=== PATIENT | female | born 1955 | race Caucasian/White ===

== ENCOUNTER 2018-02-02 21:05 | Emergency (ER) | payer OTHER, MEDICAID ==
[~2018-02-02] VITALS: Ht 154.9 cm; Wt 65.0 kg
[~2018-02-02 21:05] MED LIST: ATORVASTATIN; GABAPENTIN; HYDROXYZINE; LEVO500T2 PO; METFORMIN; MOTRIN; TRAM50TA3 PO
[2018-02-02] MEDS ORDERED: KETOROLAC 30MG/ML VIAL IV STA (23:24)
[2018-02-02] MEDS ORDERED: TETANUS, DIPHTHERIA, PERTUSSIS VAC/PF 0.5ML (>7YR OLD) IM ONE (23:30)
[2018-02-03 01:24] VITALS: BP 159/76
[2018-02-03 01:43] LABS: BASOPHILS % 0.4 % (0.0-2.0); EOSINOPHILS % 0.8 % (0.0-5.0); HEMATOCRIT. 41.1 % (36.0-48.0); HEMOGLOBIN. 13.8 g/dL (12.0-16.0); LYMPHOCYTES % 42.1 % (20.0-50.0); MEAN CORPUSCULAR HEMOGLOBIN 29.6 pg (28.0-32.0); MEAN CORPUSCULAR VOLUME 88.3 fL (81.0-99.0); MEAN PLATELET VOLUME 9.4 fl (7.4-10.4); MONOCYTES % 7.9 % (2.0-8.0); NEUTROPHILS % 48.8 % (40.0-76.0); PLATELET 240 x1000/uL (130-400); RED BLOOD CELL COUNT 4.66 mill/uL (4.2-5.4); RED CELL DISTRIBUTION WIDTH 15.2 % (11.6-14.6)
[2018-02-03 02:00] LABS: CHLORIDE 104 mEq/L (98-107)
== END 2018-02-03 02:00 | disposition home or self-care (01) ==
LOC: ER 21:05
DX: S00.31XA Abrasion of nose, initial encounter (principal); S00.211A Abrasion of right eyelid and periocular area, initial encounter; I10 Essential (primary) hypertension; E78.00 Pure hypercholesterolemia, unspecified; E11.9 Type 2 diabetes mellitus without complications; K21.9 Gastro-esophageal reflux disease without esophagitis; Z88.0 Allergy status to penicillin; Z79.899 Other long term (current) drug therapy; Z90.49 Acquired absence of other specified parts of digestive tract; W18.39XA Other fall on same level, initial encounter; Y93.89 Activity, other specified; Y92.89 Other specified places as the place of occurrence of the external cause; Y99.8 Other external cause status
CPT/HCPCS: 36415; 70450; 70486; 71045; 73030; 73070; 80053; 83690; 85025; 90471; 90715; 93005; 96374; 99285; J1885

== ENCOUNTER 2018-02-03 11:55 | Emergency (ER) | payer OTHER, MEDICAID ==
[~2018-02-03] VITALS: Ht 157.5 cm; Wt 71.5 kg
[2018-02-03] MEDS ORDERED: TRAMADOL 50MG TABLET PO ONE (12:30)
[2018-02-03 12:31] VITALS: BP 141/67
== END 2018-02-03 12:47 | disposition home or self-care (01) ==
LOC: ER 12:44
DX: S52.591A Other fractures of lower end of right radius, initial encounter for closed fracture (principal); E11.9 Type 2 diabetes mellitus without complications; E78.00 Pure hypercholesterolemia, unspecified; I10 Essential (primary) hypertension; Z98.890 Other specified postprocedural states; Z88.0 Allergy status to penicillin; Z79.899 Other long term (current) drug therapy; X58.XXXA Exposure to other specified factors, initial encounter; Y93.89 Activity, other specified; Y92.89 Other specified places as the place of occurrence of the external cause; Y99.8 Other external cause status
CPT/HCPCS: 29105; 99283

== ENCOUNTER 2018-04-13 18:07 | Emergency (ER) | payer OTHER, MEDICAID ==
[~2018-04-13] VITALS: Ht 154.9 cm; Wt 60.0 kg
[2018-04-13 19:07] VITALS: BP 143/76
== END 2018-04-13 19:06 | disposition home or self-care (01) ==
LOC: ER 18:07
DX: B37.89 Other sites of candidiasis (principal); E11.9 Type 2 diabetes mellitus without complications
CPT/HCPCS: 99283

== ENCOUNTER 2020-12-07 11:58 | Emergency (ER) | payer OTHER, MEDICAID ==
[~2020-12-07] VITALS: Ht 152.4 cm; Wt 55.0 kg
[2020-12-07] MEDS ORDERED: GABAPENTIN 300MG CAPSULE PO ONE (12:45)
[2020-12-07] MEDS ORDERED: LIDOCAINE 5% PATCH TOP SCH (12:45)
[2020-12-07] MEDS ORDERED: TRAMADOL 50MG TABLET PO ONE (12:45)
[2020-12-07] MEDS ORDERED: TRAM50TA3 MT (14:26)
[2020-12-07] MEDS ORDERED: LIDO1ADH5 TP (14:26)
[2020-12-07] MEDS ORDERED: GABA-532 MT (14:26)
[2020-12-07 14:57] VITALS: BP 176/78
== END 2020-12-07 14:59 | disposition home or self-care (01) ==
LOC: ER 12:51
DX: M54.40 Lumbago with sciatica, unspecified side (principal); E11.9 Type 2 diabetes mellitus without complications; E78.00 Pure hypercholesterolemia, unspecified; Z98.890 Other specified postprocedural states; Z79.899 Other long term (current) drug therapy; Z88.0 Allergy status to penicillin
CPT/HCPCS: 72100; 99284

== ENCOUNTER 2021-11-29 12:40 | Emergency (ER) | payer MEDICAID, OTHER ==
[~2021-11-29] VITALS: Ht 152.4 cm; Wt 66.0 kg
[~2021-11-29 12:40] MED LIST changes: +GABA-532 MT; +LIDO1ADH5 TP; +TRAM50TA3 MT
[2021-11-29] MEDS ORDERED: IBUP-2028 MT (13:43)
[2021-11-29] MEDS ORDERED: MORP15TA67 MT (13:43)
[2021-11-29] MEDS ORDERED: TOPUD PO (13:43)
[2021-11-29] MEDS ORDERED: LIDO1ADH23 TP (13:43)
[2021-11-29] MEDS ORDERED: VALA10002 MT (13:43)
[2021-11-29] MEDS ORDERED: MORPHINE SULFATE 10 MG/ML CPJ IM ONE (13:45)
[2021-11-29] MEDS ORDERED: DIPHENHYDRAMINE 50MG/ML VIAL IM ONE (13:45)
[2021-11-29] MEDS ORDERED: LIDOCAINE 5% PATCH TOP SCH (13:45)
[2021-11-29] MEDS ORDERED: KETOROLAC 60MG/2ML VIAL IM ONE (13:45)
[2021-11-29 15:22] VITALS: BP 160/73
[2021-11-29] MEDS ORDERED: VALACYCLOVIR HCL 500MG TABLET PO SCH (21:00)
== END 2021-11-29 15:24 | disposition home or self-care (01) ==
LOC: ER 12:51
DX: M79.604 Pain in right leg (principal); B02.9 Zoster without complications; E11.9 Type 2 diabetes mellitus without complications; E78.00 Pure hypercholesterolemia, unspecified; I10 Essential (primary) hypertension; Z79.899 Other long term (current) drug therapy
CPT/HCPCS: 96372; 99284; J1200; J1885; J2270

== ENCOUNTER 2022-05-17 22:02 | Inpatient (IN) | payer MEDICARE, MEDICAID ==
[~2022-05-17] VITALS: Ht 154.9 cm; Wt 76.2 kg
[~2022-05-17 22:02] MED LIST changes: +AMLO5TAB88 PO; +ASPI-986 MT; +CLON0.1T PO; +DEXT50DI6 IV; +DEXTL PO; +DOCU-150 PO; +FAMO20TA8 PO; +IBUP-2028 MT; +LIDO1ADH23 TP; +LIP40 PO; +MORP15TA67 MT; +OMEP10CA5 MT; +TOPUD PO; +VALA10002 MT
[2022-05-17 22:05] VITALS: BP 131/69
[2022-05-17] MEDS ORDERED: CLONIDINE 0.1MG TABLET PO PRN (23:00)
[2022-05-17] MEDS ORDERED: MORPHINE SULFATE 4 MG/ML CPJ (NOT FOR IM USE) IV PRN (23:00)
[2022-05-17] MEDS ORDERED: IPRATROPIUM/ALBUTEROL 0.5-3(2.5)MG/3ML NEB HHN PRN (23:00)
[2022-05-17] MEDS ORDERED: ONDANSETRON HCL 4MG/2ML INJ IV PRN (23:00)
[2022-05-17] MEDS ORDERED: NALOXONE HCL 0.4 MG/ML 1ML VIAL IV PRN (23:00)
[2022-05-17] MEDS ORDERED: DEXTROSE 50% WATER 50ML SYRINGE IV PRN (23:00)
[2022-05-17] MEDS ORDERED: NA PHOS,M-B/NA PHOS,DI-BA ENEMA 118ML PR PRN (23:00)
[2022-05-17] MEDS ORDERED: MAGNESIUM/ALUMINUM HYDROXIDE/SIMETHICONE 30ML UDC PO PRN (23:00)
[2022-05-17] MEDS ORDERED: GUAIFENESIN 200MG/10ML SUGAR FREE UDC PO PRN (23:00)
[2022-05-17] MEDS ORDERED: DIPHENHYDRAMINE 50MG/ML VIAL IV PRN (23:00)
[2022-05-18] MEDS: HYDROCODONE/ACETAMINOPHEN 5/325MG TABLET PO PRN ×3 (01:20→14:05)
[2022-05-18] MEDS: BLOOD SUGAR DIAGNOSTIC STRIP TEST SCH ×4 (05:52→21:00)
[2022-05-18 07:14] LABS: BASOPHILS % 0.2 % (0.0-2.0); EOSINOPHILS % 2.2 % (0.0-5.0); HEMATOCRIT. 34.1 % (36.0-48.0); HEMOGLOBIN. 11.5 g/dL (12.0-16.0); MEAN CORPUSCULAR HEMOGLOBIN 28.7 pg (28.0-32.0); MEAN PLATELET VOLUME 9.2 fl (7.4-10.4); MONOCYTES % 11.2 % (2.0-8.0); NEUTROPHILS % 54.4 % (40.0-76.0); PLATELET 383 x1000/uL (130-400); RED BLOOD CELL COUNT 4.01 mill/uL (4.2-5.4); RED CELL DISTRIBUTION WIDTH 13.4 % (11.6-14.6)
[2022-05-18 08:00] VITALS: BP 115/64
[2022-05-18 08:20] LABS: CHLORIDE 107 mEq/L (98-107)
[2022-05-18] MEDS: INSULIN LISPRO 100 UNITS/ML SUBCUT SCH ×4 (09:00→21:07)
[2022-05-18] MEDS: FAMOTIDINE 20MG TABLET PO SCH ×2 (09:11→21:09)
[2022-05-18] MEDS: AMLODIPINE 5MG TABLET PO SCH (09:11)
[2022-05-18 12:00] VITALS: BP 122/70
[2022-05-18] MEDS ORDERED: BISACODYL 10MG SUPP PR PRN (14:00)
[2022-05-18] MEDS ORDERED: METHOCARBAMOL 750MG TABLET PO PRN (14:30)
[2022-05-18] MEDS: LACTULOSE 20G/30ML UDC PO SCH ×2 (15:41→21:08)
[2022-05-18 16:00] VITALS: BP 110/51
[2022-05-18 19:14] LABS: CLARITY URINE CLOUDY (CLEAR); COLOR URINE YELLOW (YELLOW); KETONES URINE NEGATIVE (NEGATIVE); LEUKOCYTE ESTERASE URINE 3+ (NEGATIVE); NITRITE URINE POSITIVE (NEGATIVE); OCCULT BLOOD URINE TRACE (NEGATIVE); PH URINE 6.5 (4.5-8.0); PROTEIN URINE NEGATIVE (NEGATIVE); SPECIFIC GRAVITY URINE 1.008 (1.005-1.030)
[2022-05-18 19:59] VITALS: BP 115/77
[2022-05-18] MEDS: ATORVASTATIN CALCIUM 40MG TABLET PO SCH (21:08)
[2022-05-18] MEDS: HYDROCODONE/ACETAMINOPHEN 10/325MG TABLET PO PRN (21:09)
[2022-05-18] MEDS: GABAPENTIN 300MG CAPSULE PO SCH (22:06)
[2022-05-19] MEDS: LACTULOSE 20G/30ML UDC PO SCH
[2022-05-19] MEDS: GABAPENTIN 300MG CAPSULE PO SCH ×3 (06:00→21:00)
[2022-05-19] MEDS: BLOOD SUGAR DIAGNOSTIC STRIP TEST SCH ×4 (06:10→21:00)
[2022-05-19 07:36] LABS: BASOPHILS % 0.2 % (0.0-2.0); HEMATOCRIT. 37.2 % (36.0-48.0); HEMOGLOBIN. 12.5 g/dL (12.0-16.0); LYMPHOCYTES % 23.8 % (20.0-50.0); MEAN CORPUSCULAR HEMOGLOBIN 28.9 pg (28.0-32.0); MEAN CORPUSCULAR VOLUME 86.1 fL (81.0-99.0); MEAN PLATELET VOLUME 9.3 fl (7.4-10.4); MONOCYTES % 7.6 % (2.0-8.0); NEUTROPHILS % 67.4 % (40.0-76.0); PLATELET 450 x1000/uL (130-400); RED BLOOD CELL COUNT 4.32 mill/uL (4.2-5.4); RED CELL DISTRIBUTION WIDTH 13.7 % (11.6-14.6)
[2022-05-19 08:00] VITALS: BP 127/65
[2022-05-19] MEDS: AMLODIPINE 5MG TABLET PO SCH (08:58)
[2022-05-19] MEDS: FAMOTIDINE 20MG TABLET PO SCH ×2 (08:58→21:00)
[2022-05-19] MEDS: HYDROCODONE/ACETAMINOPHEN 10/325MG TABLET PO PRN ×2 (08:59→13:21)
[2022-05-19] MEDS: INSULIN LISPRO 100 UNITS/ML SUBCUT SCH ×4 (09:00→21:00)
[2022-05-19 12:00] VITALS: BP 132/69
[2022-05-19] MEDS ORDERED: LEVOFLOXACIN 500MG TABLET PO NR (13:15)
[2022-05-19] MEDS: POLYETHYLENE GLYCOL 3350 (17GM) 1 DOSE PACK PO SCH (13:30)
[2022-05-19 16:00] VITALS: BP 102/58
[2022-05-19 20:17] VITALS: BP 106/66
[2022-05-19] MEDS: ATORVASTATIN CALCIUM 40MG TABLET PO SCH (21:01)
[2022-05-20 02:30] LABS: FOLIC ACID (FOLATE) SERUM 6.2 ng/mL (>5.38)
[2022-05-20 03:46] LABS: CHLORIDE 105 mEq/L (98-107); TOTAL IRON BINDING CAPACITY 214 ug/dL (250-450)
[2022-05-20] MEDS: HYDROCODONE/ACETAMINOPHEN 10/325MG TABLET PO PRN ×3 (05:38→17:23)
[2022-05-20] MEDS: GABAPENTIN 300MG CAPSULE PO SCH ×3 (05:38→21:18)
[2022-05-20] MEDS: INSULIN LISPRO 100 UNITS/ML SUBCUT SCH ×4 (05:44→20:35)
[2022-05-20] MEDS: BLOOD SUGAR DIAGNOSTIC STRIP TEST SCH ×4 (05:45→20:35)
[2022-05-20 07:12] LABS: BASOPHILS % 1.1 % (0.0-2.0); EOSINOPHILS % 1.6 % (0.0-5.0); HEMATOCRIT. 33.1 % (36.0-48.0); HEMOGLOBIN. 11.4 g/dL (12.0-16.0); LYMPHOCYTES % 24.3 % (20.0-50.0); MEAN CORPUSCULAR HEMOGLOBIN 29.2 pg (28.0-32.0); MEAN CORPUSCULAR VOLUME 84.3 fL (81.0-99.0); MEAN PLATELET VOLUME 8.8 fl (7.4-10.4); MONOCYTES % 7.8 % (2.0-8.0); NEUTROPHILS % 65.2 % (40.0-76.0); PLATELET 431 x1000/uL (130-400); RED BLOOD CELL COUNT 3.92 mill/uL (4.2-5.4); RED CELL DISTRIBUTION WIDTH 13.4 % (11.6-14.6)
[2022-05-20 08:00] VITALS: BP 107/53
[2022-05-20] MEDS: POLYETHYLENE GLYCOL 3350 (17GM) 1 DOSE PACK PO SCH (09:00)
[2022-05-20] MEDS: FAMOTIDINE 20MG TABLET PO SCH ×2 (09:14→20:35)
[2022-05-20] MEDS: AMLODIPINE 5MG TABLET PO SCH (09:15)
[2022-05-20] MEDS ORDERED: NA PHOS,M-B/NA PHOS,DI-BA ENEMA 118ML PR NR (10:00)
[2022-05-20] MEDS: LACTULOSE 20G/30ML UDC PO SCH ×3 (10:27→17:23)
[2022-05-20] MEDS: LEVOFLOXACIN 250MG TABLET PO SCH (11:00)
[2022-05-20 16:20] LABS: CHLORIDE 104 mEq/L (98-107)
[2022-05-20 20:00] VITALS: BP 113/56
[2022-05-20] MEDS: ATORVASTATIN CALCIUM 40MG TABLET PO SCH (20:35)
[2022-05-21] MEDS: HYDROCODONE/ACETAMINOPHEN 10/325MG TABLET PO PRN ×4 (02:55→23:35)
[2022-05-21] MEDS: INSULIN LISPRO 100 UNITS/ML SUBCUT SCH ×4 (05:37→21:12)
[2022-05-21] MEDS: BLOOD SUGAR DIAGNOSTIC STRIP TEST SCH ×4 (05:37→20:55)
[2022-05-21] MEDS: GABAPENTIN 300MG CAPSULE PO SCH ×3 (05:37→21:08)
[2022-05-21 07:47] LABS: BASOPHILS % 0.6 % (0.0-2.0); EOSINOPHILS % 2.1 % (0.0-5.0); HEMATOCRIT. 32.3 % (36.0-48.0); LYMPHOCYTES % 26.3 % (20.0-50.0); MEAN CORPUSCULAR VOLUME 84.8 fL (81.0-99.0); MEAN PLATELET VOLUME 9.2 fl (7.4-10.4); MONOCYTES % 8.2 % (2.0-8.0); NEUTROPHILS % 62.8 % (40.0-76.0); PLATELET 521 x1000/uL (130-400); RED BLOOD CELL COUNT 3.81 mill/uL (4.2-5.4); RED CELL DISTRIBUTION WIDTH 13.6 % (11.6-14.6)
[2022-05-21 08:00] VITALS: BP 148/78
[2022-05-21] MEDS: ACETAMINOPHEN 325MG TABLET PO PRN ×2 (08:23→16:13)
[2022-05-21] MEDS: AMLODIPINE 5MG TABLET PO SCH (08:25)
[2022-05-21] MEDS: FAMOTIDINE 20MG TABLET PO SCH ×2 (08:25→20:55)
[2022-05-21] MEDS: POLYETHYLENE GLYCOL 3350 (17GM) 1 DOSE PACK PO SCH (08:27)
[2022-05-21 10:43] LABS: CHLORIDE 106 mEq/L (98-107)
[2022-05-21] MEDS: LEVOFLOXACIN 250MG TABLET PO SCH (11:00)
[2022-05-21 12:00] VITALS: BP 113/51
[2022-05-21 16:00] VITALS: BP 124/72
[2022-05-21] MEDS: AMOXICILLIN 500 MG CAPSULE PO SCH ×2 (16:12→21:08)
[2022-05-21 19:49] VITALS: BP 124/52
[2022-05-21] MEDS: ATORVASTATIN CALCIUM 40MG TABLET PO SCH (20:55)
[2022-05-22] VITALS: BP 121/54
[2022-05-22] MEDS: INSULIN LISPRO 100 UNITS/ML SUBCUT SCH ×4 (05:57→21:00)
[2022-05-22] MEDS: BLOOD SUGAR DIAGNOSTIC STRIP TEST SCH ×3 (05:57→21:00)
[2022-05-22] MEDS: HYDROCODONE/ACETAMINOPHEN 10/325MG TABLET PO PRN ×2 (06:03→13:48)
[2022-05-22] MEDS: AMOXICILLIN 500 MG CAPSULE PO SCH ×3 (06:03→21:01)
[2022-05-22] MEDS: GABAPENTIN 300MG CAPSULE PO SCH ×3 (06:03→22:00)
[2022-05-22 08:00] VITALS: BP 129/67
[2022-05-22] MEDS: FAMOTIDINE 20MG TABLET PO SCH ×2 (09:19→21:01)
[2022-05-22] MEDS: AMLODIPINE 5MG TABLET PO SCH (09:19)
[2022-05-22] MEDS: POLYETHYLENE GLYCOL 3350 (17GM) 1 DOSE PACK PO SCH (09:19)
[2022-05-22] MEDS: DOCUSATE SODIUM 100MG CAPSULE PO PRN (13:59)
[2022-05-22 20:27] VITALS: BP 118/47
[2022-05-22] MEDS: ATORVASTATIN CALCIUM 40MG TABLET PO SCH (21:01)
[2022-05-23] MEDS: HYDROCODONE/ACETAMINOPHEN 10/325MG TABLET PO PRN ×3 (02:18→21:26)
[2022-05-23] MEDS: BLOOD SUGAR DIAGNOSTIC STRIP TEST SCH ×4 (06:28→21:00)
[2022-05-23] MEDS: INSULIN LISPRO 100 UNITS/ML SUBCUT SCH ×4 (06:29→21:00)
[2022-05-23] MEDS: GABAPENTIN 300MG CAPSULE PO SCH ×3 (06:33→22:18)
[2022-05-23] MEDS: AMOXICILLIN 500 MG CAPSULE PO SCH ×3 (06:34→22:18)
[2022-05-23] MEDS: POLYETHYLENE GLYCOL 3350 (17GM) 1 DOSE PACK PO SCH ×2 (09:00→09:37)
[2022-05-23] MEDS: FAMOTIDINE 20MG TABLET PO SCH ×2 (09:36→22:18)
[2022-05-23] MEDS: AMLODIPINE 5MG TABLET PO SCH (09:37)
[2022-05-23] MEDS: ACETAMINOPHEN 325MG TABLET PO PRN (11:13)
[2022-05-23] MEDS: ATORVASTATIN CALCIUM 40MG TABLET PO SCH (22:18)
[2022-05-24] MEDS: ACETAMINOPHEN 325MG TABLET PO PRN (04:49)
[2022-05-24] MEDS: BLOOD SUGAR DIAGNOSTIC STRIP TEST SCH ×4 (06:30→21:00)
[2022-05-24] MEDS: AMOXICILLIN 500 MG CAPSULE PO SCH ×3 (07:33→21:09)
[2022-05-24 08:00] VITALS: BP 123/61
[2022-05-24] MEDS: INSULIN LISPRO 100 UNITS/ML SUBCUT SCH ×4 (08:55→21:43)
[2022-05-24] MEDS: POLYETHYLENE GLYCOL 3350 (17GM) 1 DOSE PACK PO SCH (09:00)
[2022-05-24] MEDS: FAMOTIDINE 20MG TABLET PO SCH ×2 (09:34→21:09)
[2022-05-24] MEDS: GABAPENTIN 300MG CAPSULE PO SCH ×3 (09:34→21:12)
[2022-05-24] MEDS: AMLODIPINE 5MG TABLET PO SCH (09:34)
[2022-05-24] MEDS: HYDROCODONE/ACETAMINOPHEN 10/325MG TABLET PO PRN ×2 (09:35→16:35)
[2022-05-24] MEDS: METHOCARBAMOL 500MG TABLET PO PRN (12:45)
[2022-05-24] MEDS ORDERED: BISACODYL 10MG SUPP PR PRN (13:15)
[2022-05-24] MEDS: LACTULOSE 20G/30ML UDC PO SCH ×2 (16:36→21:00)
[2022-05-24 17:06] LABS: 25-HYDROXY VITAMIN D3 25 ng/mL (.)
[2022-05-24 20:00] VITALS: BP 126/71
[2022-05-24] MEDS: ATORVASTATIN CALCIUM 40MG TABLET PO SCH (21:00)
[2022-05-25] MEDS: ACETAMINOPHEN 325MG TABLET PO PRN (01:31)
[2022-05-25] MEDS: BLOOD SUGAR DIAGNOSTIC STRIP TEST SCH ×4 (05:24→21:03)
[2022-05-25] MEDS: AMOXICILLIN 500 MG CAPSULE PO SCH ×3 (05:28→21:02)
[2022-05-25] MEDS: HYDROCODONE/ACETAMINOPHEN 10/325MG TABLET PO PRN ×3 (05:41→18:22)
[2022-05-25 06:30] LABS: BASOPHILS % 0.8 % (0.0-2.0); EOSINOPHILS % 1.1 % (0.0-5.0); HEMATOCRIT. 36.4 % (36.0-48.0); HEMOGLOBIN. 12.5 g/dL (12.0-16.0); LYMPHOCYTES % 31.1 % (20.0-50.0); MEAN CORPUSCULAR HEMOGLOBIN 28.9 pg (28.0-32.0); MEAN CORPUSCULAR VOLUME 84.1 fL (81.0-99.0); MEAN PLATELET VOLUME 8.1 fl (7.4-10.4); MONOCYTES % 7.1 % (2.0-8.0); NEUTROPHILS % 59.9 % (40.0-76.0); PLATELET 683 x1000/uL (130-400); RED BLOOD CELL COUNT 4.32 mill/uL (4.2-5.4); RED CELL DISTRIBUTION WIDTH 13.7 % (11.6-14.6)
[2022-05-25 07:28] LABS: CHLORIDE 107 mEq/L (98-107)
[2022-05-25 08:00] VITALS: BP 108/57
[2022-05-25] MEDS: INSULIN LISPRO 100 UNITS/ML SUBCUT SCH ×4 (09:00→21:00)
[2022-05-25] MEDS: POLYETHYLENE GLYCOL 3350 (17GM) 1 DOSE PACK PO SCH (11:35)
[2022-05-25] MEDS: LACTULOSE 20G/30ML UDC PO SCH ×4 (11:35→21:07)
[2022-05-25] MEDS: GABAPENTIN 300MG CAPSULE PO SCH ×3 (11:36→21:03)
[2022-05-25] MEDS: AMLODIPINE 5MG TABLET PO SCH (11:37)
[2022-05-25] MEDS: FAMOTIDINE 20MG TABLET PO SCH ×2 (11:38→21:03)
[2022-05-25] MEDS: DOCUSATE SODIUM 100MG CAPSULE PO PRN (14:24)
[2022-05-25] MEDS: METHOCARBAMOL 500MG TABLET PO PRN (14:28)
[2022-05-25] MEDS ORDERED: ERGOCALCIFEROL 50000UNITS CAPSULE PO SCH (16:00)
[2022-05-25] MEDS: ATORVASTATIN CALCIUM 40MG TABLET PO SCH (21:03)
[2022-05-26] MEDS: HYDROCODONE/ACETAMINOPHEN 10/325MG TABLET PO PRN ×4 (02:40→17:54)
[2022-05-26] MEDS: AMOXICILLIN 500 MG CAPSULE PO SCH ×2 (05:58→14:05)
[2022-05-26] MEDS: BLOOD SUGAR DIAGNOSTIC STRIP TEST SCH ×4 (06:03→20:47)
[2022-05-26] MEDS: LACTULOSE 20G/30ML UDC PO SCH ×3 (08:56→17:53)
[2022-05-26] MEDS: POLYETHYLENE GLYCOL 3350 (17GM) 1 DOSE PACK PO SCH (08:56)
[2022-05-26] MEDS: FAMOTIDINE 20MG TABLET PO SCH ×2 (08:57→21:17)
[2022-05-26] MEDS: GABAPENTIN 300MG CAPSULE PO SCH ×3 (08:57→21:16)
[2022-05-26] MEDS: METHOCARBAMOL 500MG TABLET PO PRN (08:57)
[2022-05-26] MEDS: INSULIN LISPRO 100 UNITS/ML SUBCUT SCH ×4 (09:00→21:19)
[2022-05-26] MEDS: AMLODIPINE 5MG TABLET PO SCH (09:01)
[2022-05-26] MEDS: DICLOFENAC SODIUM 1% GEL 50GM TOP SCH ×3 (13:30→21:17)
[2022-05-26 20:00] VITALS: BP 115/58
[2022-05-26] MEDS: ATORVASTATIN CALCIUM 40MG TABLET PO SCH (21:16)
[2022-05-27] MEDS: BLOOD SUGAR DIAGNOSTIC STRIP TEST SCH ×4 (06:19→21:24)
[2022-05-27] MEDS: INSULIN LISPRO 100 UNITS/ML SUBCUT SCH ×4 (06:20→21:26)
[2022-05-27 08:00] VITALS: BP 123/56
[2022-05-27] MEDS: FAMOTIDINE 20MG TABLET PO SCH ×2 (08:58→21:14)
[2022-05-27] MEDS: GABAPENTIN 300MG CAPSULE PO SCH ×3 (08:58→21:14)
[2022-05-27] MEDS: AMLODIPINE 5MG TABLET PO SCH (08:59)
[2022-05-27] MEDS: POLYETHYLENE GLYCOL 3350 (17GM) 1 DOSE PACK PO SCH (09:00)
[2022-05-27] MEDS: HYDROCODONE/ACETAMINOPHEN 10/325MG TABLET PO PRN ×2 (09:00→21:14)
[2022-05-27] MEDS: DICLOFENAC SODIUM 1% GEL 50GM TOP SCH ×4 (09:00→21:25)
[2022-05-27 20:00] VITALS: BP 130/73
[2022-05-27] MEDS: ATORVASTATIN CALCIUM 40MG TABLET PO SCH (21:13)
[2022-05-28] MEDS: BLOOD SUGAR DIAGNOSTIC STRIP TEST SCH ×2 (05:37→11:15)
[2022-05-28] MEDS: INSULIN LISPRO 100 UNITS/ML SUBCUT SCH ×2 (05:38→12:46)
[2022-05-28 08:00] VITALS: BP 130/73
[2022-05-28] MEDS: FAMOTIDINE 20MG TABLET PO SCH (09:38)
[2022-05-28] MEDS: AMLODIPINE 5MG TABLET PO SCH (09:38)
[2022-05-28] MEDS: GABAPENTIN 300MG CAPSULE PO SCH (09:38)
[2022-05-28] MEDS: HYDROCODONE/ACETAMINOPHEN 10/325MG TABLET PO PRN (09:39)
[2022-05-28] MEDS: DICLOFENAC SODIUM 1% GEL 50GM TOP SCH ×2 (09:39→13:00)
[2022-05-28] MEDS: DOCUSATE SODIUM 100MG CAPSULE PO PRN (09:39)
[2022-05-28] MEDS: POLYETHYLENE GLYCOL 3350 (17GM) 1 DOSE PACK PO SCH (09:40)
[2022-05-28 11:22] VITALS: BP 125/78
== END 2022-05-28 14:47 | disposition home health service (06) | DRG 552 ==
PROVIDERS: ADMIT Physical Medicine & Rehabilitation Spinal Cord Injury Medicine; ATTEND Internal Medicine
DX: S32.041A Stable burst fracture of fourth lumbar vertebra, initial encounter for closed fracture (principal); G82.20 Paraplegia, unspecified; N39.0 Urinary tract infection, site not specified; E78.5 Hyperlipidemia, unspecified; E11.9 Type 2 diabetes mellitus without complications; W18.39XA Other fall on same level, initial encounter; D64.9 Anemia, unspecified; I10 Essential (primary) hypertension; E55.9 Vitamin D deficiency, unspecified; F32.A Depression, unspecified; F41.9 Anxiety disorder, unspecified; F09 Unspecified mental disorder due to known physiological condition; K59.00 Constipation, unspecified; M85.80 Other specified disorders of bone density and structure, unspecified site; R20.0 Anesthesia of skin; R53.81 Other malaise; R20.2 Paresthesia of skin; R74.01 Elevation of levels of liver transaminase levels; R79.89 Other specified abnormal findings of blood chemistry; B96.20 Unspecified Escherichia coli [E. coli] as the cause of diseases classified elsewhere; R26.9 Unspecified abnormalities of gait and mobility; Z88.0 Allergy status to penicillin; Z91.81 History of falling; Z82.49 Family history of ischemic heart disease and other diseases of the circulatory system; Y93.89 Activity, other specified; Z98.1 Arthrodesis status; Y92.098 Other place in other non-institutional residence as the place of occurrence of the external cause; Y99.8 Other external cause status
CPT/HCPCS: 36415; 80048; 80053; 81003; 82306; 82607; 82728; 82746; 82962; 83036; 83540; 83550; 84134; 84443; 85025; 87077; 87186; 92610; 93970; 97110; 97116; 97162; 97166; 97530; 97535; J1815; A5200

== ENCOUNTER 2022-06-19 10:41 | Emergency (ER) | payer OTHER, MEDICAID ==
[~2022-06-19] VITALS: Ht 152.4 cm; Wt 64.0 kg
[~2022-06-19 10:41] MED LIST changes: -ATORVASTATIN; -CLON0.1T PO; -DEXT50DI6 IV; -DOCU-150 PO; -GABAPENTIN; -HYDROXYZINE; -IBUP-2028 MT; -LEVO500T2 PO; -LIDO1ADH23 TP; -LIDO1ADH5 TP; -METFORMIN; -MORP15TA67 MT; -MOTRIN; -OMEP10CA5 MT; -TRAM50TA3 MT; -VALA10002 MT
[2022-06-19 10:46] VITALS: BP 140/82
[2022-06-19] MEDS ORDERED: ONDANSETRON HCL 4MG/2ML INJ IV STA (14:59)
[2022-06-19] MEDS ORDERED: MORPHINE SULFATE 4 MG/ML CPJ (NOT FOR IM USE) IV STA (14:59)
[2022-06-19] MEDS ORDERED: SODIUM CHLORIDE 0.9% 1,000 ML IV ONE (15:00)
[2022-06-19 15:03] LABS: BASOPHILS % 0.8 % (0.0-2.0); EOSINOPHILS % 0.3 % (0.0-5.0); HEMATOCRIT. 40.8 % (36.0-48.0); HEMOGLOBIN. 13.6 g/dL (12.0-16.0); MEAN CORPUSCULAR HEMOGLOBIN 28.2 pg (28.0-32.0); MEAN CORPUSCULAR VOLUME 84.7 fL (81.0-99.0); MEAN PLATELET VOLUME 8.9 fl (7.4-10.4); MONOCYTES % 5.9 % (2.0-8.0); PLATELET 346 x1000/uL (130-400); RED BLOOD CELL COUNT 4.81 mill/uL (4.2-5.4); RED CELL DISTRIBUTION WIDTH 14.2 % (11.6-14.6)
[2022-06-19 15:08] LABS: CHLORIDE 105 mEq/L (98-107)
[2022-06-19] MEDS ORDERED: HYDROCODONE/ACETAMINOPHEN 5/325MG TABLET PO ONE (17:30)
[2022-06-19] MEDS ORDERED: ONDANSETRON HCL 4MG/2ML INJ IV NR (18:00)
[2022-06-19] MEDS ORDERED: HYDR-4001 MT (18:46)
== END 2022-06-19 19:19 | disposition home or self-care (01) ==
LOC: ER 11:14
DX: S32.049A Unspecified fracture of fourth lumbar vertebra, initial encounter for closed fracture (principal); R53.1 Weakness; R10.13 Epigastric pain; M79.18 Myalgia, other site; X58.XXXA Exposure to other specified factors, initial encounter; Y93.89 Activity, other specified; Y92.89 Other specified places as the place of occurrence of the external cause; E11.9 Type 2 diabetes mellitus without complications; E78.5 Hyperlipidemia, unspecified; K57.92 Diverticulitis of intestine, part unspecified, without perforation or abscess without bleeding; I10 Essential (primary) hypertension; Z20.822 Contact with and (suspected) exposure to COVID-19
CPT/HCPCS: 36415; 74176; 80053; 83690; 83880; 84484; 85025; 87426; 87804; 93005; 96361; 96374; 99285; C9803; J2405; J7030

== ENCOUNTER 2022-08-11 01:04 | Emergency (ER) | payer OTHER, MEDICAID ==
[~2022-08-11] VITALS: Ht 154.9 cm; Wt 61.8 kg
[~2022-08-11 01:04] MED LIST changes: +HYDR-4001 MT
[2022-08-11 04:12] LABS: CHLORIDE 107 mEq/L (98-107); EOSINOPHILS % 0.6 % (0.0-5.0); HEMATOCRIT. 39.9 % (36.0-48.0); HEMOGLOBIN. 13.5 g/dL (12.0-16.0); MEAN CORPUSCULAR HEMOGLOBIN 27.8 pg (28.0-32.0); MEAN CORPUSCULAR VOLUME 82.4 fL (81.0-99.0); MONOCYTES % 6.9 % (2.0-8.0); NEUTROPHILS % 63.5 % (40.0-76.0); PLATELET 342 x1000/uL (130-400); RED BLOOD CELL COUNT 4.84 mill/uL (4.2-5.4); RED CELL DISTRIBUTION WIDTH 16.3 % (11.6-14.6)
[2022-08-11] MEDS ORDERED: VISCOUS LIDOCAINE 2% 15 ML UDC PO NR (08:32)
[2022-08-11] MEDS ORDERED: MAGNESIUM/ALUMINUM HYDROXIDE/SIMETHICONE 30ML UDC PO NR (08:32)
[2022-08-11] MEDS ORDERED: FAMOTIDINE 20MG TABLET PO NR (08:45)
[2022-08-11] MEDS ORDERED: SODIUM CHLORIDE 0.9% 1,000 ML IV ONE (09:00)
[2022-08-11 10:04] LABS: CLARITY URINE CLOUDY (CLEAR); COLOR URINE YELLOW (YELLOW); KETONES URINE NEGATIVE (NEGATIVE); LEUKOCYTE ESTERASE URINE 3+ (NEGATIVE); NITRITE URINE NEGATIVE (NEGATIVE); OCCULT BLOOD URINE NEGATIVE (NEGATIVE); PH URINE 7.5 (4.5-8.0); PROTEIN URINE NEGATIVE (NEGATIVE); SPECIFIC GRAVITY URINE 1.007 (1.005-1.030); UROBILINOGEN URINE 0.2 E.U./dL (0.2-1.0)
[2022-08-11] MEDS ORDERED: CEFTRIAXONE 1 G PREMIX 50 ML IV SCH (11:00)
[2022-08-11] MEDS ORDERED: ACETAMINOPHEN 325MG TABLET PO ONE (13:00)
[2022-08-11] MEDS ORDERED: IOHEXOL-350 100 ML BOTTLE ONE (14:01)
[2022-08-11 14:10] VITALS: BP 155/78
[2022-08-11] MEDS ORDERED: ONDA4TAB50 MT (14:15)
[2022-08-11] MEDS ORDERED: FAMO-135 MT (14:15)
[2022-08-11] MEDS ORDERED: CEPH500C2 MT (14:15)
[2022-08-11] MEDS ORDERED: HYDR-4001 MT (14:42)
== END 2022-08-11 14:40 | disposition home or self-care (01) ==
LOC: ER 01:04
DX: N39.0 Urinary tract infection, site not specified (principal); K29.70 Gastritis, unspecified, without bleeding; I10 Essential (primary) hypertension; E11.9 Type 2 diabetes mellitus without complications; E78.00 Pure hypercholesterolemia, unspecified; Z79.899 Other long term (current) drug therapy; Z79.82 Long term (current) use of aspirin
CPT/HCPCS: 36415; 71045; 71275; 76705; 80053; 81003; 83605; 83690; 84484; 85025; 85379; 96361; 96365; 99285; J0696; J7030; Q9967

== ENCOUNTER 2024-02-19 18:54 | Emergency (ER) | payer OTHER, MEDICAID, MEDICARE ==
[~2024-02-19] VITALS: Ht 157.5 cm; Wt 61.0 kg
[~2024-02-19 18:54] MED LIST changes: -FAMO20TA8 PO; -HYDR-4001 MT; +ONDA4TAB50 MT; +PANT20TA17 PO; +[UNRECOGNIZED DRUG - CODE] MT
[2024-02-19 19:10] VITALS: O2SAT 98
[2024-02-19 23:03] LABS: HEMATOCRIT. 39.6 % (36.0-48.0); HEMOGLOBIN. 13.2 g/dL (12.0-16.0); MEAN CORPUSCULAR HEMOGLOBIN 29.5 pg (28.0-32.0); MEAN CORPUSCULAR HGB CONC 33.4 g/dL (31.0-37.0); MEAN CORPUSCULAR VOLUME 88.4 fL (81.0-99.0); MEAN PLATELET VOLUME 8.2 fl (7.4-10.4); PLATELET 394 x1000/uL (130-400); RED BLOOD CELL COUNT 4.47 mill/uL (4.2-5.4); RED CELL DISTRIBUTION WIDTH 14.1 % (11.6-14.6); WHITE BLOOD COUNT 7.4 x1000/uL (4.5-11.0)
[2024-02-19 23:04] LABS: DIFFERENTIAL COMMENT 1
[2024-02-19 23:10] LABS: CHLORIDE 106 mEq/L (98-107); SODIUM 139 mEq/L (136-145)
[2024-02-19 23:11] LABS: CALCIUM 9.6 mg/dL (8.7-10.4); CARBON DIOXIDE 26 mEq/L (21-32); PROTHROMBIN TIME 10.9 sec (9.6-11.0)
[2024-02-19 23:16] LABS: CREATININE 0.8 mg/dL (0.6-1.0); GLUCOSE 123 mg/dL (70-105); UREA NITROGEN BLOOD 5 mg/dL (9-23)
[2024-02-19 23:18] LABS: ALANINE AMINOTRANSFERASE 46 IU/L (10-49); ALBUMIN 4.9 g/dL (3.2-4.8); ASPARTATE AMINOTRANSFERASE 44 IU/L (<34); BILIRUBIN TOTAL 0.4 mg/dL (0.1-1.0); PROTEIN TOTAL 8.3 g/dL (6.0-8.3)
[2024-02-19 23:19] LABS: BILIRUBIN DIRECT < 0.1 mg/dL (<=3.0); TROPONIN I HIGH SENSITIVITY < 4 ng/L (3.0-34)
[2024-02-19 23:25] LABS: PLATELET ESTIMATE NORMAL
[2024-02-19] MEDS: MAGNESIUM/ALUMINUM HYDROXIDE/SIMETHICONE 30ML UDC PO ONE (23:26)
[2024-02-19] MEDS: KETOROLAC 30MG/ML VIAL IM ONE (23:26)
[2024-02-19 23:48] LABS: CLARITY URINE CLEAR (CLEAR); COLOR URINE YELLOW (YELLOW); GLUCOSE URINE NEGATIVE (NEGATIVE); KETONES URINE NEGATIVE (NEGATIVE); LEUKOCYTE ESTERASE URINE 1+ (NEGATIVE); NITRITE URINE NEGATIVE (NEGATIVE); OCCULT BLOOD URINE 2+ (NEGATIVE); PH URINE 6.5 (4.5-8.0); PROTEIN URINE NEGATIVE (NEGATIVE); SPECIFIC GRAVITY URINE 1.008 (1.005-1.030); UROBILINOGEN URINE 0.2 E.U./dL (0.2-1.0)
[2024-02-20 04:09] LABS: WBC URINE 0-2 /hpf (0-2)
[2024-02-20 04:10] LABS: SQUAMOUS EPITHELIAL CELL URINE FEW /lpf (RARE/1+)
[2024-02-20 04:11] LABS: BACTERIA URINE TRACE
[2024-02-20 05:03] VITALS: BP 155/83; PULSE 79; RESP 19; TEMP 36.89184; O2SAT 100
== END 2024-02-20 05:04 | disposition home or self-care (01) ==
LOC: ER 18:54
DX: R10.13 Epigastric pain (principal); E11.9 Type 2 diabetes mellitus without complications; E78.00 Pure hypercholesterolemia, unspecified; I10 Essential (primary) hypertension; K58.8 Other irritable bowel syndrome; Z79.899 Other long term (current) drug therapy
CPT/HCPCS: 99285; 74176; 80076; 80048; 81003; 83690; 85025; 85610; 84484; 36415; 82803; 93005; 96372; J1885